=== PATIENT | female | born 1965 | race Two or more races ===

== ENCOUNTER → 2020-11-05 | Outpatient (CLI) | payer OTHER ==
[~2020-11-05] MED LIST: AMLO1CAP PO; GABA300C PO; LOVA10TA PO; METO-93 PO; SERT100T32 PO
[2020-11-05 15:06] LABS: BASOPHILS % (AUTO) 1 % (0-1); EOSINOPHILS % (AUTO) 3 % (1-7); LYMPHOCYTES % (AUTO) 24 % (22-44); MEAN CORPUSCULAR HEMOGLOBIN 31.2 pg (27.0-34.8); MEAN CORPUSCULAR HGB CONC 33.9 g/dL (32.4-35.8); MEAN PLATELET VOLUME 8.1 fL (7.4-10.4); MONOCYTES % (AUTO) 7 % (2-9); NEUTROPHILS % (AUTO) 65 % (42-75); PLATELET COUNT 286 x10^3/uL (130-400); RED BLOOD COUNT 4.39 x10^6/uL (3.82-5.3); RED CELL DISTRIBUTION WIDTH 13.8 % (9.6-15.2)
[2020-11-05 15:08] LABS: MICROSCOPIC NOT IND
[2020-11-05 15:10] LABS: MD NO
[2020-11-05 15:20] LABS: ANION GAP 8 mmol/L (5-15); CALCIUM 8.9 mg/dL (8.5-10.1); CHLORIDE 106 mmol/L (98-107)
[2020-11-05 15:24] LABS: ALANINE AMINOTRANSFERASE 23 U/L (12-78); ALKALINE PHOSPHATASE 84 U/L (45-117); BILIRUBIN,TOTAL 0.4 mg/dL (0.2-1.0); CREATININE 0.55 mg/dL (0.55-1.02); TOTAL PROTEIN 8.2 g/dL (6.4-8.2)
[2020-11-05 15:31] LABS: INTERNATIONAL NORMALIZED RATIO 0.98 (0.93-1.1); PROTHROMBIN TIME 10.5 Seconds (9.6-11.5)
== END | disposition home or self-care (01) ==
LOC: STAR 13:48
PROVIDERS: ATTEND Neurological Surgery
DX: Z01.812 Encounter for preprocedural laboratory examination (principal); Z20.822 Contact with and (suspected) exposure to COVID-19; Z01.811 Encounter for preprocedural respiratory examination; Z01.810 Encounter for preprocedural cardiovascular examination; M47.896 Other spondylosis, lumbar region; M43.16 Spondylolisthesis, lumbar region; M51.36 Other intervertebral disc degeneration, lumbar region; M48.061 Spinal stenosis, lumbar region without neurogenic claudication; R79.1 Abnormal coagulation profile; R82.90 Unspecified abnormal findings in urine; R94.31 Abnormal electrocardiogram [ECG] [EKG]
CPT/HCPCS: 36415; 71046; 80053; 81003; 85025; 85610; 85730; 93005; U0003

== ENCOUNTER 2020-11-11 07:03 | Inpatient (IN) | payer OTHER ==
[~2020-11-11] VITALS: Ht 154.9 cm; Wt 77.4 kg
[~2020-11-11 07:03] MED LIST changes: +BACITRACIN 50,000 UNIT ONE; +BUPIVACAINE/PF 0.5% ONE; +EPINEPHRINE 1 MG/ML, 1ML ONE; +FENTANYL PF 250 MCG/5ML ONE; +HEPARIN 1,000 UNITS/ML, 30ML ONE; +MIDAZOLAM 1 MG/ML, 2ML ONE; +THROMBIN 5,000 UNIT VIAL TP ONE
[2020-11-11 07:49] VITALS: BP 144/94
[2020-11-11] MEDS ORDERED: CHLORHEXIDINE 15 ML UDC PO ONE (08:00)
[2020-11-11] MEDS ORDERED: LACTATED RINGERS 1,000 ML IV SCH (08:00)
[2020-11-11] MEDS ORDERED: DEXAMETHASONE 4 MG/ML, 1ML ONE (09:01)
[2020-11-11] MEDS ORDERED: ROCURONIUM 10 MG/ML,10ML ONE (09:01)
[2020-11-11] MEDS ORDERED: PROPOFOL 10 MG/ML, 20ML ONE (09:01)
[2020-11-11] MEDS ORDERED: CEFAZOLIN 1,000 MG ONE (09:01)
[2020-11-11] MEDS ORDERED: NEOSTIGMINE 1 MG/ML, 10ML ONE (09:01)
[2020-11-11] MEDS ORDERED: GLYCOPYRROLATE 0.2MG/1ML, 5ML ONE (09:01)
[2020-11-11] MEDS ORDERED: ONDANSETRON 2MG/ML, 2ML ONE ×2 (09:01)
[2020-11-11] MEDS ORDERED: HEPARIN 1,000 UNITS/ML, 30ML IVPB ONE (09:34)
[2020-11-11] MEDS: METOPROLOL SUCCINATE 50 MG TAB.ER.24H PO SCH (10:30)
[2020-11-11] MEDS ORDERED: FENTANYL PF 100 MCG/2ML ONE (10:59)
[2020-11-11] MEDS ORDERED: OXYcodone 5 MG/5 ML ORAL.SOL UDC ONE (10:59)
[2020-11-11] MEDS ORDERED: DIAZEPAM 5 MG/ML, 2ML IV PRN ×2 (11:00)
[2020-11-11] MEDS ORDERED: METHOCARBAMOL 1,000 MG in DEXTROSE 5% 100 ML IV ONE (11:00)
[2020-11-11] MEDS ORDERED: PHARMACY MAY ADJ FOR RENAL FX MC PRN (11:00)
[2020-11-11] MEDS ORDERED: KETOROLAC 30 MG/1 ML IV PRN (11:00)
[2020-11-11] MEDS ORDERED: LABETALOL 5MG/ML, 20ML IVPush PRN (11:00)
[2020-11-11] MEDS ORDERED: MEPERIDINE/PF 25MG/0.5ML IVPush PRN (11:00)
[2020-11-11] MEDS ORDERED: hydrALAzine 20 MG/ML, 1ML IV PRN (11:00)
[2020-11-11] MEDS ORDERED: PROMETHAZINE 25 MG/ML, 1ML IV PRN (11:00)
[2020-11-11] MEDS ORDERED: DIPHENHYDRAMINE 50 MG/ML, 1ML IM PRN (11:00)
[2020-11-11] MEDS ORDERED: BISACODYL 10 MG SUPP PR PRN (11:00)
[2020-11-11] MEDS ORDERED: ALBUTEROL SULFATE 2.5 MG/3 ML NPPB PRN (11:00)
[2020-11-11] MEDS ORDERED: HYDROmorphone 1 MG/ML, 1ML INJ IVPush PRN (11:00)
[2020-11-11] MEDS ORDERED: HYDROcodone/APAP 10/325 MG TABLET PO PRN (11:00)
[2020-11-11] MEDS ORDERED: OXYcodone 5 MG/5 ML ORAL.SOL UDC PO PRN (11:00)
[2020-11-11] MEDS ORDERED: MAGNESIUM HYDROXIDE 8%, 30ML UDC PO PRN (11:00)
[2020-11-11] MEDS ORDERED: PROMETHAZINE 25 MG/ML, 1ML IM PRN (11:00)
[2020-11-11] MEDS ORDERED: LABETALOL 5MG/ML, 20ML IV PRN (11:00)
[2020-11-11] MEDS: FENTANYL PF 100 MCG/2ML IV PRN ×2 (11:00→11:05)
[2020-11-11] MEDS ORDERED: ONDANSETRON 2MG/ML, 2ML IVPush PRN ×2 (11:00)
[2020-11-11] MEDS ORDERED: DIPHENHYDRAMINE 50 MG CAPSULE PO PRN (11:00)
[2020-11-11] MEDS ORDERED: DIPHENHYDRAMINE 50 MG/ML, 1ML IVPush PRN (11:00)
[2020-11-11] MEDS ORDERED: SENNA/DOCUSATE TABLET PO PRN (11:00)
[2020-11-11] MEDS ORDERED: METOCLOPRAMIDE 5 MG/ML, 2ML IV PRN (11:00)
[2020-11-11] MEDS: GABAPENTIN 300 MG CAPSULE PO SCH (11:20)
[2020-11-11] MEDS ORDERED: HYDROmorphone 1 MG/ML, 1ML INJ ONE (11:24)
[2020-11-11] MEDS: HYDROmorphone 1 MG/ML, 1ML INJ IV PRN ×3 (11:25→11:40)
[2020-11-11 13:26] VITALS: BP 113/76
[2020-11-11] MEDS: SERTRALINE 100MG TABLET PO SCH (14:08)
[2020-11-11] MEDS: HYDROcodone/APAP 5/325 TABLET PO PRN ×2 (17:06→21:07)
[2020-11-11] MEDS: CEFAZOLIN PMX 1GM/50ML 50 ML IVPB SCH (17:28)
[2020-11-11 19:11] VITALS: BP 107/68
[2020-11-11] MEDS: LOVASTATIN 10 MG TABLET PO SCH (21:08)
[2020-11-11] MEDS: METHOCARBAMOL 750 MG in DEXTROSE 5% 100 ML IV PRN (21:37)
[2020-11-11] MEDS: D5%-0.9% NACL+KCL 20MEQ 1,000 ML IV SCH (21:37)
[2020-11-12 00:30] VITALS: BP 114/78
[2020-11-12] MEDS: HYDROcodone/APAP 5/325 TABLET PO PRN ×4 (01:02→20:07)
[2020-11-12] MEDS: CEFAZOLIN PMX 1GM/50ML 50 ML IVPB SCH ×2 (01:12→17:07)
[2020-11-12 04:34] VITALS: BP 125/73
[2020-11-12] MEDS: METHOCARBAMOL 750 MG in DEXTROSE 5% 100 ML IV PRN (05:14)
[2020-11-12] MEDS: METOPROLOL SUCCINATE 50 MG TAB.ER.24H PO SCH (05:18)
[2020-11-12 05:43] LABS: BASOPHILS % (AUTO) 0 % (0-1); EOSINOPHILS % (AUTO) 2 % (1-7); LYMPHOCYTES % (AUTO) 14 % (22-44); MEAN CORPUSCULAR HEMOGLOBIN 31.6 pg (27.0-34.8); MEAN CORPUSCULAR HGB CONC 33.5 g/dL (32.4-35.8); MEAN PLATELET VOLUME 8.1 fL (7.4-10.4); MONOCYTES % (AUTO) 7 % (2-9); NEUTROPHILS % (AUTO) 77 % (42-75); PLATELET COUNT 227 x10^3/uL (130-400); RED BLOOD COUNT 3.77 x10^6/uL (3.82-5.3); RED CELL DISTRIBUTION WIDTH 13.9 % (9.6-15.2)
[2020-11-12 05:44] LABS: MD NO
[2020-11-12 06:05] LABS: ANION GAP 8 mmol/L (5-15); CHLORIDE 109 mmol/L (98-107)
[2020-11-12] MEDS ORDERED: VANCOMYCIN 1,000 MG ONE (06:33)
[2020-11-12] MEDS ORDERED: BUPIVACAINE/PF 0.5% ONE (06:33)
[2020-11-12] MEDS ORDERED: EPINEPHRINE 1 MG/ML, 1ML ONE (06:33)
[2020-11-12] MEDS ORDERED: BACITRACIN 50,000 UNIT ONE (06:33)
[2020-11-12 07:14] VITALS: BP 113/71
[2020-11-12] MEDS ORDERED: FENTANYL PF 250 MCG/5ML ONE (07:34)
[2020-11-12] MEDS ORDERED: MIDAZOLAM 1 MG/ML, 2ML ONE (07:34)
[2020-11-12] MEDS ORDERED: CHLORHEXIDINE 15 ML UDC ONE (07:47)
[2020-11-12] MEDS ORDERED: CHLORHEXIDINE 15 ML UDC PO ONE (08:00)
[2020-11-12] MEDS ORDERED: LACTATED RINGERS 1,000 ML IV SCH (08:00)
[2020-11-12] MEDS: D5%-0.9% NACL+KCL 20MEQ 1,000 ML IV SCH ×2 (08:00→13:17)
[2020-11-12] MEDS: GABAPENTIN 300 MG CAPSULE PO SCH (08:06)
[2020-11-12] MEDS: AMLODIPINE 10 MG TAB PO SCH (08:06)
[2020-11-12] MEDS: SERTRALINE 100MG TABLET PO SCH (08:07)
[2020-11-12] MEDS: LISINOPRIL 20 MG TABLET PO SCH (08:07)
[2020-11-12] MEDS ORDERED: PROPOFOL 10 MG/ML, 20ML ONE (08:26)
[2020-11-12] MEDS ORDERED: CEFAZOLIN 1,000 MG ONE (08:26)
[2020-11-12] MEDS ORDERED: ONDANSETRON 2MG/ML, 2ML ONE (08:26)
[2020-11-12] MEDS ORDERED: ROCURONIUM 10 MG/ML,10ML ONE (08:26)
[2020-11-12] MEDS ORDERED: SUCCINYLCHOLINE 20 MG/ML, 10ML ONE (08:26)
[2020-11-12] MEDS ORDERED: DEXAMETHASONE 4 MG/ML, 1ML ONE (08:26)
[2020-11-12] MEDS ORDERED: BACITRACIN 50,000 UNIT IRRIG ONE (09:01)
[2020-11-12] MEDS ORDERED: EPINEPHRINE 1 MG/ML, 1ML INFIL ONE (09:02)
[2020-11-12] MEDS ORDERED: BUPIVACAINE/PF 0.5% INFIL ONE (09:02)
[2020-11-12] MEDS ORDERED: VANCOMYCIN 1,000 MG IM ONE (09:03)
[2020-11-12] MEDS ORDERED: PROMETHAZINE 25 MG/ML, 1ML IV PRN (11:00)
[2020-11-12] MEDS ORDERED: METOCLOPRAMIDE 5 MG/ML, 2ML IV PRN (11:00)
[2020-11-12] MEDS ORDERED: ONDANSETRON 2MG/ML, 2ML IVPush PRN ×2 (11:00→11:30)
[2020-11-12] MEDS ORDERED: hydrALAzine 20 MG/ML, 1ML IV PRN (11:00)
[2020-11-12] MEDS ORDERED: KETOROLAC 30 MG/1 ML IV PRN (11:00)
[2020-11-12] MEDS ORDERED: HYDROmorphone 1 MG/ML, 1ML INJ IV PRN (11:00)
[2020-11-12] MEDS ORDERED: DIAZEPAM 5 MG/ML, 2ML IV PRN ×2 (11:00)
[2020-11-12] MEDS ORDERED: FENTANYL PF 100 MCG/2ML IV PRN (11:00)
[2020-11-12] MEDS ORDERED: OXYcodone 5 MG/5 ML ORAL.SOL UDC PO PRN (11:00)
[2020-11-12] MEDS ORDERED: ALBUTEROL SULFATE 2.5 MG/3 ML NPPB PRN (11:00)
[2020-11-12] MEDS ORDERED: MEPERIDINE/PF 25MG/0.5ML IVPush PRN (11:00)
[2020-11-12] MEDS ORDERED: LABETALOL 5MG/ML, 20ML IV PRN (11:00)
[2020-11-12] MEDS ORDERED: KETOROLAC 30 MG/1 ML ONE (11:25)
[2020-11-12] MEDS: KETOROLAC 30 MG/1 ML IVPush SCH ×2 (11:29→20:07)
[2020-11-12] MEDS ORDERED: BISACODYL 10 MG SUPP PR PRN (11:30)
[2020-11-12] MEDS ORDERED: LABETALOL 5MG/ML, 20ML IVPush PRN (11:30)
[2020-11-12] MEDS ORDERED: HYDROmorphone 1 MG/ML, 1ML INJ IVPush PRN (11:30)
[2020-11-12] MEDS ORDERED: PROMETHAZINE 25 MG/ML, 1ML IM PRN (11:30)
[2020-11-12] MEDS ORDERED: PHARMACY MAY ADJ FOR RENAL FX MC PRN (11:30)
[2020-11-12] MEDS ORDERED: MAGNESIUM HYDROXIDE 8%, 30ML UDC PO PRN (11:30)
[2020-11-12] MEDS ORDERED: SENNA/DOCUSATE TABLET PO PRN (11:30)
[2020-11-12] MEDS ORDERED: HYDROcodone/APAP 10/325 MG TABLET PO PRN (11:30)
[2020-11-12] MEDS ORDERED: MEPERIDINE/PF 25MG/ML,1ML ONE (11:36)
[2020-11-12] MEDS: NS + 20MEQ KCL 1,000 ML IV SCH ×2 (12:00→13:45)
[2020-11-12] MEDS ORDERED: METHOCARBAMOL 1,000 MG in DEXTROSE 5% 100 ML IV ONE (12:00)
[2020-11-12 12:48] VITALS: BP 101/66
[2020-11-12] MEDS ORDERED: METHOCARBAMOL 750 MG in DEXTROSE 5% 100 ML IV PRN (19:30)
[2020-11-12 19:42] VITALS: BP 94/62
[2020-11-12] MEDS: SODIUM CHLORIDE FLUSH 10ML SYR IVF SCH (20:07)
[2020-11-12] MEDS: LOVASTATIN 10 MG TABLET PO SCH (20:07)
[2020-11-13] VITALS: BP 104/70
[2020-11-13] MEDS: HYDROcodone/APAP 5/325 TABLET PO PRN ×4 (00:05→22:09)
[2020-11-13] MEDS: ZOLPIDEM 5MG TABLET PO PRN ×2 (00:05→22:09)
[2020-11-13] MEDS: CEFAZOLIN PMX 1GM/50ML 50 ML IVPB SCH (01:14)
[2020-11-13] MEDS: D5%-0.9% NACL+KCL 20MEQ 1,000 ML IV SCH ×3 (01:15→22:14)
[2020-11-13] MEDS: NS + 20MEQ KCL 1,000 ML IV SCH ×2 (01:20→14:40)
[2020-11-13 04:01] VITALS: BP 103/67
[2020-11-13 05:11] LABS: BASOPHILS % (AUTO) 0 % (0-1); EOSINOPHILS % (AUTO) 2 % (1-7); LYMPHOCYTES % (AUTO) 14 % (22-44); MEAN CORPUSCULAR HEMOGLOBIN 32.3 pg (27.0-34.8); MEAN CORPUSCULAR HGB CONC 34.1 g/dL (32.4-35.8); MEAN PLATELET VOLUME 8.1 fL (7.4-10.4); MONOCYTES % (AUTO) 8 % (2-9); NEUTROPHILS % (AUTO) 75 % (42-75); PLATELET COUNT 194 x10^3/uL (130-400); RED BLOOD COUNT 3.07 x10^6/uL (3.82-5.3)
[2020-11-13 05:13] LABS: MD NO
[2020-11-13 05:22] LABS: ANION GAP 5 mmol/L (5-15); CALCIUM 7.2 mg/dL (8.5-10.1); CHLORIDE 112 mmol/L (98-107)
[2020-11-13] MEDS: KETOROLAC 30 MG/1 ML IVPush SCH ×3 (05:55→22:09)
[2020-11-13 07:25] VITALS: BP 104/66
[2020-11-13] MEDS: SODIUM CHLORIDE FLUSH 10ML SYR IVF SCH ×2 (09:00→20:50)
[2020-11-13] MEDS: LISINOPRIL 20 MG TABLET PO SCH (10:44)
[2020-11-13] MEDS: METOPROLOL SUCCINATE 50 MG TAB.ER.24H PO SCH (10:44)
[2020-11-13] MEDS: SERTRALINE 100MG TABLET PO SCH (10:44)
[2020-11-13] MEDS: AMLODIPINE 10 MG TAB PO SCH (10:44)
[2020-11-13] MEDS: GABAPENTIN 300 MG CAPSULE PO SCH (10:44)
[2020-11-13] MEDS: ENOXAPARIN 40 MG/0.4 ML SQ SCH (10:45)
[2020-11-13 12:06] VITALS: BP 99/65
[2020-11-13 20:19] VITALS: BP 96/64
[2020-11-13] MEDS: LOVASTATIN 10 MG TABLET PO SCH (22:09)
[2020-11-14 02:29] VITALS: BP 111/66
[2020-11-14] MEDS: NS + 20MEQ KCL 1,000 ML IV SCH (03:30)
[2020-11-14] MEDS: HYDROcodone/APAP 5/325 TABLET PO PRN ×2 (03:30→10:31)
[2020-11-14 05:23] LABS: BASOPHILS % (AUTO) 0 % (0-1); EOSINOPHILS % (AUTO) 4 % (1-7); LYMPHOCYTES % (AUTO) 17 % (22-44); MEAN CORPUSCULAR HEMOGLOBIN 32.5 pg (27.0-34.8); MEAN CORPUSCULAR HGB CONC 33.7 g/dL (32.4-35.8); MEAN PLATELET VOLUME 8.4 fL (7.4-10.4); MONOCYTES % (AUTO) 8 % (2-9); NEUTROPHILS % (AUTO) 71 % (42-75); PLATELET COUNT 223 x10^3/uL (130-400); RED BLOOD COUNT 3.04 x10^6/uL (3.82-5.3); RED CELL DISTRIBUTION WIDTH 13.4 % (9.6-15.2)
[2020-11-14 05:31] LABS: MD NO
[2020-11-14] MEDS: KETOROLAC 30 MG/1 ML IVPush SCH (06:15)
[2020-11-14 07:02] VITALS: BP 98/64
[2020-11-14] MEDS ORDERED: CYCL10TA2 PO (07:40)
[2020-11-14] MEDS ORDERED: HYDR-2214 PO (07:40)
[2020-11-14] MEDS ORDERED: POLY17PO5 PO (07:40)
[2020-11-14] MEDS: LISINOPRIL 20 MG TABLET PO SCH (09:00)
[2020-11-14] MEDS: ENOXAPARIN 40 MG/0.4 ML SQ SCH (09:00)
[2020-11-14] MEDS: SERTRALINE 100MG TABLET PO SCH (09:00)
[2020-11-14] MEDS: METOPROLOL SUCCINATE 50 MG TAB.ER.24H PO SCH (09:00)
[2020-11-14] MEDS: AMLODIPINE 10 MG TAB PO SCH (09:00)
[2020-11-14] MEDS: GABAPENTIN 300 MG CAPSULE PO SCH (09:00)
[2020-11-14 09:52] VITALS: BP 111/75
[2020-11-14] MEDS: SODIUM CHLORIDE FLUSH 10ML SYR IVF SCH (10:55)
== END 2020-11-14 11:32 | disposition home or self-care (01) | DRG 455 ==
LOC: ORIP 07:03 → 4NE 12:48 → DCLOUNGE 11-14 11:20
PROVIDERS: ADMIT Neurological Surgery; ATTEND Neurological Surgery
PROC: 0SB20ZZ Excision of Lumbar Vertebral Disc, Open Approach (ICD-10-PCS; 2020-11-11)
PROC: 4A11X4G Monitoring of Peripheral Nervous Electrical Activity, Intraoperative, External Approach (ICD-10-PCS; 2020-11-11)
PROC: 0SG00A0 Fusion of Lumbar Vertebral Joint with Interbody Fusion Device, Anterior Approach, Anterior Column, Open Approach (ICD-10-PCS; principal; 2020-11-11 09:00)
PROC: 0SG00K1 Fusion of Lumbar Vertebral Joint with Nonautologous Tissue Substitute, Posterior Approach, Posterior Column, Open Approach (ICD-10-PCS; 2020-11-12)
PROC: 01NB0ZZ Release Lumbar Nerve, Open Approach (ICD-10-PCS; 2020-11-12)
PROC: 4A11X4G Monitoring of Peripheral Nervous Electrical Activity, Intraoperative, External Approach (ICD-10-PCS; 2020-11-12)
DX: M48.062 Spinal stenosis, lumbar region with neurogenic claudication (principal); M51.36 Other intervertebral disc degeneration, lumbar region; M47.896 Other spondylosis, lumbar region; M43.16 Spondylolisthesis, lumbar region; M19.90 Unspecified osteoarthritis, unspecified site; M51.16 Intervertebral disc disorders with radiculopathy, lumbar region
CPT/HCPCS: 36415; 72100; 74018; S0020; 72131; 80048; 85025; 95938; 95941; C1713; G0378; J0171; J0690; J1100; J1170; J1644; J1650; J1885; J2175; J2250; J2405; J2704; J2710; J3010; J3370; J3480; C1762; C1889; J0330; J2800; J7120